=== PATIENT | female | born 1980 | race Caucasian/White ===

== ENCOUNTER 2016-12-15 10:54 | Inpatient (IN) | payer OTHER ==
[~2016-12-15] VITALS: Ht 165.1 cm; Wt 83.9 kg
[~2016-12-15 10:54] MED LIST: AMOXICILLIN/CLAVULAN PO; ATIVAN2 MG PO; BACLOFEN20 MG PO; BENADRY2 EX; BENADRYL ALLERG25 M1; CELEXA40 M1 PO; CYCLOBENZAPR10 MG PO; DILAUDID4 MG PO; DURAGESIC75 MCG/H1 TD; EFFEXOR25 M1 PO; FENTANYL50 MCG/HR TD; HYDROCODONE/ACE1 TAB PO; KEPPRA1000 MG PO; NITROFURANTN100 M2 PO; NITROFURANTN100 MG PO; ONDANSETRON4 MG PO; PERCOCET1 TA4 PO; RESTORIL15 M1 PO; RISPERDAL 4MG TA4 MG PO; SEROQUEL100 MG PO; SEROQUEL200 MG PO; TRAZODONE300 MG PO
[2016-12-15] MEDS ORDERED: ATIVAN1 M1 PO (12:00)
[2016-12-15 12:26] LABS: HEMATOCRIT 39.8 % (37.0-47.0); HEMOGLOBIN 12.2 g/dl (12.0-16.0); IMMATURE GRANULOCYTES 0.7 % (0.0-1.0); MEAN CELL VOLUME 69.7 fL CALC (80.0-100.0); MEAN CORPUSCULAR HGB 21.4 pG CALC (26.0-32.0); MEAN CORPUSCULAR HGB CONC 30.7 g/L CALC (32.0-36.0); NEUT# 11.71 thou/uL (2.00-7.15); RED BLOOD COUNT 5.71 mill/uL (4.20-5.60); RED CELL DISTRI WIDTH 19.6 % (11.5-15.5)
[2016-12-15 12:32] LABS: URINE BILIRUBIN - DIPSTICK NEGATIVE (NEGATIVE); URINE BLOOD DIPSTICK MODERATE (NEGATIVE); URINE CLARITY HAZY; URINE COLOR YELLOW; URINE GLUCOSE - DIPSTICK NEGATIVE (NEGATIVE); URINE KETONE NEGATIVE (NEGATIVE); URINE LEUK ESTERASE LARGE (NEGATIVE); URINE NITRITE - DIPSTICK POSITIVE (Negative); URINE PROTEIN - DIPSTICK NEGATIVE (NEG-TRACE); URINE SPECIFIC GRAVITY 1.015; URINE UROBILINOGEN - DIPSTICK 0.2 E.U./dL (0.2)
[2016-12-15 12:33] LABS: URINE RBC 25-50 RBC/hpf (0-5)
[2016-12-15 12:34] LABS: ALBUMIN 4.2 g/dL (3.2-5.0); ALKALINE PHOSPHATASE 109 u/l (38-126); ANION GAP 15 (6-22 (CALC)); BILIRUBIN, TOTAL 0.8 mg/dL (0.0-1.4); BUN 9 mg/dL (7-17); BUN/CREATININE RATIO 10 (12-20 (CALC)); CALCIUM 9.5 mg/dL (8.4-10.2); CARBON DIOXIDE 32 mmol/l (22-30); CHLORIDE 91 mmol/l (95-108); CREATININE 0.9 mg/dL (0.5-1.0); GFR > 60 ML/MIN (>=60 (CALC)); GFR FOR AFR.AMER. > 60 ML/MIN (>=60 (CALC)); GLUCOSE 98 mg/dL (65-105); POTASSIUM 3.1 mmol/l (3.5-5.1); SGOT/AST 32 u/l (14-36); SGPT/ALT 31 u/l (9-52); SODIUM 135 mmol/l (137-146); TOTAL PROTEIN 7.1 g/dL (6.3-8.2)
[2016-12-15 12:34] LABS: URINE BACTERIA MANY hpf; URINE EPITHELIAL CELLS MODERATE EPI/hpf (0-FEW); URINE WBC 20-50 WBC/hpf (0-5)
[2016-12-15 16:12] VITALS: BP 98/64
[2016-12-15 19:00] VITALS: BP 85/54
[2016-12-15 19:26] LABS: ANION GAP 12 (6-22 (CALC)); BUN 8 mg/dL (7-17); BUN/CREATININE RATIO 12 (12-20 (CALC)); CALCIUM 8.1 mg/dL (8.4-10.2); CARBON DIOXIDE 31 mmol/l (22-30); CHLORIDE 99 mmol/l (95-108); CREATININE 0.7 mg/dL (0.5-1.0); GFR > 60 ML/MIN (>=60 (CALC)); GFR FOR AFR.AMER. > 60 ML/MIN (>=60 (CALC)); GLUCOSE 89 mg/dL (65-105); MAGNESIUM 1.4 mg/dL (1.6-2.3); POTASSIUM 3.4 mmol/l (3.5-5.1); SODIUM 138 mmol/l (137-146)
[2016-12-16 04:54] VITALS: BP 100/62
[2016-12-16 05:51] LABS: HEMATOCRIT 34.3 % (37.0-47.0); HEMOGLOBIN 10.4 g/dl (12.0-16.0); IMMATURE GRANULOCYTES 0.4 % (0.0-1.0); MEAN CELL VOLUME 71.3 fL CALC (80.0-100.0); MEAN CORPUSCULAR HGB 21.6 pG CALC (26.0-32.0); MEAN CORPUSCULAR HGB CONC 30.3 g/L CALC (32.0-36.0); NEUT# 7.01 thou/uL (2.00-7.15); RED BLOOD COUNT 4.81 mill/uL (4.20-5.60); RED CELL DISTRI WIDTH 18.9 % (11.5-15.5)
[2016-12-16 05:52] LABS: ANION GAP 11 (6-22 (CALC)); BUN 4 mg/dL (7-17); BUN/CREATININE RATIO 11 (12-20 (CALC)); CALCIUM 8.5 mg/dL (8.4-10.2); CARBON DIOXIDE 32 mmol/l (22-30); CHLORIDE 101 mmol/l (95-108); CREATININE 0.4 mg/dL (0.5-1.0); GFR > 60 ML/MIN (>=60 (CALC)); GFR FOR AFR.AMER. > 60 ML/MIN (>=60 (CALC)); GLUCOSE 101 mg/dL (65-105); POTASSIUM 3.2 mmol/l (3.5-5.1); SODIUM 141 mmol/l (137-146)
[2016-12-16 08:05] VITALS: BP 92/59
[2016-12-16 16:23] VITALS: BP 94/61
[2016-12-16 19:15] VITALS: BP 92/59
[2016-12-16 23:00] VITALS: BP 90/60
[2016-12-17 04:00] VITALS: BP 95/60
[2016-12-17 08:01] VITALS: BP 118/83
[2016-12-17 08:20] LABS: HEMATOCRIT 32.7 % (37.0-47.0); HEMOGLOBIN 9.8 g/dl (12.0-16.0); IMMATURE GRANULOCYTES 0.5 % (0.0-1.0); MEAN CELL VOLUME 70.5 fL CALC (80.0-100.0); MEAN CORPUSCULAR HGB 21.1 pG CALC (26.0-32.0); NEUT# 5.17 thou/uL (2.00-7.15); RED BLOOD COUNT 4.64 mill/uL (4.20-5.60); RED CELL DISTRI WIDTH 19.2 % (11.5-15.5)
[2016-12-17 08:38] LABS: ANION GAP 9 (6-22 (CALC)); BUN 3 mg/dL (7-17); BUN/CREATININE RATIO 10 (12-20 (CALC)); CALCIUM 8.5 mg/dL (8.4-10.2); CARBON DIOXIDE 33 mmol/l (22-30); CHLORIDE 102 mmol/l (95-108); CREATININE 0.3 mg/dL (0.5-1.0); GFR > 60 ML/MIN (>=60 (CALC)); GFR FOR AFR.AMER. > 60 ML/MIN (>=60 (CALC)); GLUCOSE 95 mg/dL (65-105); POTASSIUM 3.3 mmol/l (3.5-5.1); SODIUM 141 mmol/l (137-146)
[2016-12-17 11:35] VITALS: BP 106/65
[2016-12-17 15:55] VITALS: BP 114/77
[2016-12-17 19:10] VITALS: BP 129/70; BP 99/61
[2016-12-18 04:40] VITALS: BP 130/90
[2016-12-18 05:44] LABS: HEMATOCRIT 31.2 % (37.0-47.0); HEMOGLOBIN 9.6 g/dl (12.0-16.0); IMMATURE GRANULOCYTES 0.3 % (0.0-1.0); MEAN CELL VOLUME 70.4 fL CALC (80.0-100.0); MEAN CORPUSCULAR HGB 21.7 pG CALC (26.0-32.0); MEAN CORPUSCULAR HGB CONC 30.8 g/L CALC (32.0-36.0); NEUT# 3.64 thou/uL (2.00-7.15); RED BLOOD COUNT 4.43 mill/uL (4.20-5.60); RED CELL DISTRI WIDTH 19.1 % (11.5-15.5)
[2016-12-18 06:24] LABS: ANION GAP 9 (6-22 (CALC)); BUN 5 mg/dL (7-17); BUN/CREATININE RATIO 16 (12-20 (CALC)); CALCIUM 8.4 mg/dL (8.4-10.2); CARBON DIOXIDE 30 mmol/l (22-30); CHLORIDE 105 mmol/l (95-108); CREATININE 0.3 mg/dL (0.5-1.0); GFR > 60 ML/MIN (>=60 (CALC)); GFR FOR AFR.AMER. > 60 ML/MIN (>=60 (CALC)); GLUCOSE 87 mg/dL (65-105); POTASSIUM 3.5 mmol/l (3.5-5.1); SODIUM 141 mmol/l (137-146)
[2016-12-18 07:50] VITALS: BP 124/79
[2016-12-18 15:28] VITALS: BP 139/104
[2016-12-18 17:01] VITALS: BP 135/91
[2016-12-18 19:55] VITALS: BP 139/67
[2016-12-19 04:10] VITALS: BP 130/71
[2016-12-19 08:15] VITALS: BP 151/101
[2016-12-19 12:30] VITALS: BP 142/70
[2016-12-19 16:16] LABS: C. DIFFICILE TOXIN A&B NEGATIVE (NEGATIVE)
[2016-12-19 16:30] VITALS: BP 137/91
[2016-12-19 19:18] VITALS: BP 108/72
[2016-12-20] VITALS (7 sets, daily range): BP systolic 131–163; BP diastolic 93–115
[2016-12-20 06:58] LABS: HEMATOCRIT 28.5 % (37.0-47.0); HEMOGLOBIN 8.8 g/dl (12.0-16.0); MEAN CELL VOLUME 70.2 fL CALC (80.0-100.0); MEAN CORPUSCULAR HGB 21.7 pG CALC (26.0-32.0); MEAN CORPUSCULAR HGB CONC 30.9 g/L CALC (32.0-36.0); RED BLOOD COUNT 4.06 mill/uL (4.20-5.60); RED CELL DISTRI WIDTH 18.9 % (11.5-15.5)
[2016-12-20 07:43] LABS: ANION GAP 9 (6-22 (CALC)); BUN 4 mg/dL (7-17); BUN/CREATININE RATIO 12 (12-20 (CALC)); CALCIUM 8.1 mg/dL (8.4-10.2); CARBON DIOXIDE 28 mmol/l (22-30); CHLORIDE 107 mmol/l (95-108); CREATININE 0.3 mg/dL (0.5-1.0); GFR > 60 ML/MIN (>=60 (CALC)); GFR FOR AFR.AMER. > 60 ML/MIN (>=60 (CALC)); GLUCOSE 85 mg/dL (65-105); MAGNESIUM 1.4 mg/dL (1.6-2.3); POTASSIUM 3.6 mmol/l (3.5-5.1); SODIUM 140 mmol/l (137-146)
[2016-12-21 03:10] VITALS: BP 120/66
[2016-12-21 07:29] VITALS: BP 142/100
[2016-12-21 15:31] VITALS: BP 126/88
[2016-12-21 20:00] VITALS: BP 138/95
[2016-12-22 04:00] VITALS: BP 138/91
[2016-12-22 07:05] LABS: HEMOGLOBIN 9.2 g/dl (12.0-16.0); IMMATURE GRANULOCYTES 1.6 % (0.0-1.0); MEAN CELL VOLUME 70.4 fL CALC (80.0-100.0); MEAN CORPUSCULAR HGB 21.6 pG CALC (26.0-32.0); MEAN CORPUSCULAR HGB CONC 30.7 g/L CALC (32.0-36.0); NEUT# 3.43 thou/uL (2.00-7.15); RED BLOOD COUNT 4.26 mill/uL (4.20-5.60); RED CELL DISTRI WIDTH 19.7 % (11.5-15.5)
[2016-12-22 07:19] LABS: ANION GAP 9 (6-22 (CALC)); BUN 4 mg/dL (7-17); BUN/CREATININE RATIO 13 (12-20 (CALC)); CALCIUM 8.3 mg/dL (8.4-10.2); CARBON DIOXIDE 33 mmol/l (22-30); CHLORIDE 104 mmol/l (95-108); CREATININE 0.3 mg/dL (0.5-1.0); GFR > 60 ML/MIN (>=60 (CALC)); GFR FOR AFR.AMER. > 60 ML/MIN (>=60 (CALC)); GLUCOSE 84 mg/dL (65-105); POTASSIUM 3.5 mmol/l (3.5-5.1); SODIUM 142 mmol/l (137-146)
[2016-12-22 10:05] VITALS: BP 125/85
[2016-12-22 15:34] VITALS: BP 119/79
[2016-12-22 19:40] VITALS: BP 137/65
[2016-12-23] VITALS (11 sets, daily range): BP systolic 91–126; BP diastolic 59–87
[2016-12-23 06:00] LABS: HEMATOCRIT 30.6 % (37.0-47.0); HEMOGLOBIN 9.3 g/dl (12.0-16.0); MEAN CELL VOLUME 70.5 fL CALC (80.0-100.0); MEAN CORPUSCULAR HGB 21.4 pG CALC (26.0-32.0); MEAN CORPUSCULAR HGB CONC 30.4 g/L CALC (32.0-36.0); NEUT# 4.84 thou/uL (2.00-7.15); RED BLOOD COUNT 4.34 mill/uL (4.20-5.60); RED CELL DISTRI WIDTH 19.9 % (11.5-15.5)
[2016-12-23 06:05] LABS: ANION GAP 10 (6-22 (CALC)); BUN 4 mg/dL (7-17); BUN/CREATININE RATIO 13 (12-20 (CALC)); CALCIUM 8.7 mg/dL (8.4-10.2); CARBON DIOXIDE 32 mmol/l (22-30); CHLORIDE 101 mmol/l (95-108); CREATININE 0.3 mg/dL (0.5-1.0); GFR > 60 ML/MIN (>=60 (CALC)); GFR FOR AFR.AMER. > 60 ML/MIN (>=60 (CALC)); GLUCOSE 82 mg/dL (65-105); MAGNESIUM 1.7 mg/dL (1.6-2.3); POTASSIUM 3.8 mmol/l (3.5-5.1); SODIUM 140 mmol/l (137-146)
[2016-12-24 04:45] VITALS: BP 110/76
[2016-12-24 06:06] LABS: HEMATOCRIT 30.6 % (37.0-47.0); HEMOGLOBIN 9.2 g/dl (12.0-16.0); IMMATURE GRANULOCYTES 1.2 % (0.0-1.0); MEAN CELL VOLUME 71.2 fL CALC (80.0-100.0); MEAN CORPUSCULAR HGB 21.4 pG CALC (26.0-32.0); MEAN CORPUSCULAR HGB CONC 30.1 g/L CALC (32.0-36.0); NEUT# 4.64 thou/uL (2.00-7.15); RED BLOOD COUNT 4.3 mill/uL (4.20-5.60); RED CELL DISTRI WIDTH 20.5 % (11.5-15.5)
[2016-12-24 07:25] LABS: ANION GAP 13 (6-22 (CALC)); BUN 7 mg/dL (7-17); BUN/CREATININE RATIO 18 (12-20 (CALC)); CALCIUM 8.5 mg/dL (8.4-10.2); CARBON DIOXIDE 31 mmol/l (22-30); CHLORIDE 102 mmol/l (95-108); CREATININE 0.4 mg/dL (0.5-1.0); GFR > 60 ML/MIN (>=60 (CALC)); GFR FOR AFR.AMER. > 60 ML/MIN (>=60 (CALC)); GLUCOSE 91 mg/dL (65-105); SODIUM 141 mmol/l (137-146)
[2016-12-24 07:37] VITALS: BP 93/70
[2016-12-24 14:53] VITALS: BP 106/64
[2016-12-24 21:22] VITALS: BP 113/79
[2016-12-25 05:43] VITALS: BP 119/84
[2016-12-25 16:33] VITALS: BP 127/77
[2016-12-25 19:00] VITALS: BP 106/54
[2016-12-26 05:39] VITALS: BP 95/62
[2016-12-26 08:55] VITALS: BP 91/63
[2016-12-26 16:45] VITALS: BP 110/72
[2016-12-26 19:40] VITALS: BP 97/61
[2016-12-27] VITALS (9 sets, daily range): BP systolic 91–111; BP diastolic 52–73
[2016-12-27 09:52] LABS: HEMOGLOBIN 10.7 g/dl (12.0-16.0); IMMATURE GRANULOCYTES 1.3 % (0.0-1.0); MEAN CORPUSCULAR HGB CONC 30.6 g/L CALC (32.0-36.0); NEUT# 7.62 thou/uL (2.00-7.15); RED BLOOD COUNT 4.86 mill/uL (4.20-5.60)
[2016-12-27 10:11] LABS: ANION GAP 14 (6-22 (CALC)); BUN 7 mg/dL (7-17); BUN/CREATININE RATIO 17 (12-20 (CALC)); CALCIUM 9.3 mg/dL (8.4-10.2); CARBON DIOXIDE 32 mmol/l (22-30); CHLORIDE 99 mmol/l (95-108); CREATININE 0.4 mg/dL (0.5-1.0); GFR > 60 ML/MIN (>=60 (CALC)); GFR FOR AFR.AMER. > 60 ML/MIN (>=60 (CALC)); GLUCOSE 85 mg/dL (65-105); POTASSIUM 4.4 mmol/l (3.5-5.1); SODIUM 140 mmol/l (137-146)
[2016-12-28 04:00] VITALS: BP 95/65
[2016-12-28 08:02] VITALS: BP 91/64
[2016-12-28 10:04] LABS: HEMATOCRIT 31.1 % (37.0-47.0); HEMOGLOBIN 9.4 g/dl (12.0-16.0); MEAN CORPUSCULAR HGB 22.1 pG CALC (26.0-32.0); MEAN CORPUSCULAR HGB CONC 30.2 g/L CALC (32.0-36.0); NEUT# 8.71 thou/uL (2.00-7.15); RED BLOOD COUNT 4.26 mill/uL (4.20-5.60); RED CELL DISTRI WIDTH 21.3 % (11.5-15.5)
[2016-12-28 15:30] VITALS: BP 100/68
[2016-12-28 19:00] VITALS: BP 90/62
[2016-12-28 23:00] VITALS: BP 98/68
[2016-12-29 05:08] VITALS: BP 103/69
[2016-12-29 09:18] VITALS: BP 102/74
[2016-12-29 16:16] VITALS: BP 113/79
[2016-12-29 20:05] VITALS: BP 106/78
[2016-12-29] MEDS ORDERED: FERROUS SULFAT325 MG PO (22:12)
[2016-12-29] MEDS ORDERED: AMLODIPINE BESYL5 MG PO (22:12)
[2016-12-29] MEDS ORDERED: ASPIRIN EC325 MG PO (22:12)
[2016-12-29] MEDS ORDERED: CEFEPIME2 GM IM (22:12)
[2016-12-29] MEDS ORDERED: FLORASTOR250 M1 PO (22:12)
[2016-12-29] MEDS ORDERED: HYDROCODONE/ACE1 TAB PO (22:12)
[2016-12-29 23:30] VITALS: BP 121/84
[2016-12-30 04:00] VITALS: BP 100/71
[2016-12-30 05:20] LABS: HEMATOCRIT 29.1 % (37.0-47.0); HEMOGLOBIN 8.7 g/dl (12.0-16.0); IMMATURE GRANULOCYTES 0.8 % (0.0-1.0); MEAN CELL VOLUME 73.1 fL CALC (80.0-100.0); MEAN CORPUSCULAR HGB 21.9 pG CALC (26.0-32.0); MEAN CORPUSCULAR HGB CONC 29.9 g/L CALC (32.0-36.0); NEUT# 7.99 thou/uL (2.00-7.15); RED BLOOD COUNT 3.98 mill/uL (4.20-5.60); RED CELL DISTRI WIDTH 21.4 % (11.5-15.5)
[2016-12-30 05:42] LABS: ANION GAP 15 (6-22 (CALC)); BUN 5 mg/dL (7-17); BUN/CREATININE RATIO 11 (12-20 (CALC)); CALCIUM 8.9 mg/dL (8.4-10.2); CARBON DIOXIDE 29 mmol/l (22-30); CHLORIDE 99 mmol/l (95-108); CREATININE 0.4 mg/dL (0.5-1.0); GFR > 60 ML/MIN (>=60 (CALC)); GFR FOR AFR.AMER. > 60 ML/MIN (>=60 (CALC)); GLUCOSE 102 mg/dL (65-105); MAGNESIUM 1.7 mg/dL (1.6-2.3); POTASSIUM 3.9 mmol/l (3.5-5.1); SODIUM 138 mmol/l (137-146)
[2016-12-30 08:31] VITALS: BP 108/77
[2016-12-30 15:00] VITALS: BP 80/63
[2016-12-30 17:48] LABS: URINE BILIRUBIN - DIPSTICK NEGATIVE (NEGATIVE); URINE BLOOD DIPSTICK NEGATIVE (NEGATIVE); URINE CLARITY CLEAR; URINE COLOR YELLOW; URINE GLUCOSE - DIPSTICK NEGATIVE (NEGATIVE); URINE KETONE NEGATIVE (NEGATIVE); URINE NITRITE - DIPSTICK NEGATIVE (Negative); URINE PROTEIN - DIPSTICK NEGATIVE (NEG-TRACE); URINE SPECIFIC GRAVITY <=1.005; URINE UROBILINOGEN - DIPSTICK 0.2 E.U./dL (0.2)
[2016-12-30 17:52] LABS: URINE LEUK ESTERASE TRACE (Negative)
[2016-12-30 19:25] VITALS: BP 124/78
[2016-12-31 04:15] VITALS: BP 144/81
[2016-12-31 06:28] LABS: HEMATOCRIT 26.7 % (37.0-47.0); HEMOGLOBIN 8.1 g/dl (12.0-16.0); MEAN CELL VOLUME 73.4 fL CALC (80.0-100.0); MEAN CORPUSCULAR HGB 22.3 pG CALC (26.0-32.0); MEAN CORPUSCULAR HGB CONC 30.3 g/L CALC (32.0-36.0); NEUT# 7.38 thou/uL (2.00-7.15); RED BLOOD COUNT 3.64 mill/uL (4.20-5.60); RED CELL DISTRI WIDTH 21.3 % (11.5-15.5)
[2016-12-31 06:32] LABS: ANION GAP 11 (6-22 (CALC)); BUN 4 mg/dL (7-17); BUN/CREATININE RATIO 10 (12-20 (CALC)); CALCIUM 8.5 mg/dL (8.4-10.2); CARBON DIOXIDE 29 mmol/l (22-30); CHLORIDE 103 mmol/l (95-108); CREATININE 0.4 mg/dL (0.5-1.0); GFR > 60 ML/MIN (>=60 (CALC)); GFR FOR AFR.AMER. > 60 ML/MIN (>=60 (CALC)); GLUCOSE 101 mg/dL (65-105); MAGNESIUM 1.7 mg/dL (1.6-2.3); POTASSIUM 3.5 mmol/l (3.5-5.1); SODIUM 140 mmol/l (137-146)
[2016-12-31 09:04] VITALS: BP 113/76
[2016-12-31] MEDS ORDERED: LORTAB 10-325 M1 TAB PO (15:07)
[2016-12-31 15:37] VITALS: BP 106/77
[2016-12-31 19:02] VITALS: BP 102/73
[2017-01-01 04:00] VITALS: BP 116/71
[2017-01-01 04:43] LABS: HEMATOCRIT 25.7 % (37.0-47.0); HEMOGLOBIN 7.8 g/dl (12.0-16.0); IMMATURE GRANULOCYTES 1.1 % (0.0-1.0); MEAN CELL VOLUME 73.6 fL CALC (80.0-100.0); MEAN CORPUSCULAR HGB 22.3 pG CALC (26.0-32.0); MEAN CORPUSCULAR HGB CONC 30.4 g/L CALC (32.0-36.0); NEUT# 5.38 thou/uL (2.00-7.15); RED BLOOD COUNT 3.49 mill/uL (4.20-5.60); RED CELL DISTRI WIDTH 21.4 % (11.5-15.5)
[2017-01-01 04:59] LABS: ANION GAP 15 (6-22 (CALC)); BUN 3 mg/dL (7-17); BUN/CREATININE RATIO 8 (12-20 (CALC)); CALCIUM 8.4 mg/dL (8.4-10.2); CARBON DIOXIDE 29 mmol/l (22-30); CHLORIDE 104 mmol/l (95-108); CREATININE 0.4 mg/dL (0.5-1.0); GFR > 60 ML/MIN (>=60 (CALC)); GFR FOR AFR.AMER. > 60 ML/MIN (>=60 (CALC)); GLUCOSE 90 mg/dL (65-105); POTASSIUM 3.6 mmol/l (3.5-5.1); SODIUM 144 mmol/l (137-146)
[2017-01-01 09:32] VITALS: BP 118/76
[2017-01-01 19:50] VITALS: BP 112/71
[2017-01-02 03:57] VITALS: BP 142/58
[2017-01-02 06:06] LABS: HEMATOCRIT 27.6 % (37.0-47.0); HEMOGLOBIN 8.1 g/dl (12.0-16.0); IMMATURE GRANULOCYTES 1.7 % (0.0-1.0); MEAN CELL VOLUME 75.2 fL CALC (80.0-100.0); MEAN CORPUSCULAR HGB 22.1 pG CALC (26.0-32.0); MEAN CORPUSCULAR HGB CONC 29.3 g/L CALC (32.0-36.0); NEUT# 6.72 thou/uL (2.00-7.15); RED BLOOD COUNT 3.67 mill/uL (4.20-5.60); RED CELL DISTRI WIDTH 21.6 % (11.5-15.5)
[2017-01-02 06:09] LABS: ANION GAP 15 (6-22 (CALC)); BUN 5 mg/dL (7-17); BUN/CREATININE RATIO 14 (12-20 (CALC)); CALCIUM 8.7 mg/dL (8.4-10.2); CARBON DIOXIDE 25 mmol/l (22-30); CHLORIDE 107 mmol/l (95-108); CREATININE 0.3 mg/dL (0.5-1.0); GFR > 60 ML/MIN (>=60 (CALC)); GFR FOR AFR.AMER. > 60 ML/MIN (>=60 (CALC)); GLUCOSE 128 mg/dL (65-105); SODIUM 143 mmol/l (137-146)
[2017-01-02 07:54] VITALS: BP 131/86
[2017-01-02 15:36] VITALS: BP 145/88
[2017-01-02 19:15] VITALS: BP 119/76
[2017-01-03 04:35] VITALS: BP 130/86
[2017-01-03 06:04] LABS: HEMATOCRIT 27.5 % (37.0-47.0); HEMOGLOBIN 8.1 g/dl (12.0-16.0); MEAN CELL VOLUME 75.3 fL CALC (80.0-100.0); MEAN CORPUSCULAR HGB 22.2 pG CALC (26.0-32.0); MEAN CORPUSCULAR HGB CONC 29.5 g/L CALC (32.0-36.0); NEUT# 9.02 thou/uL (2.00-7.15); RED BLOOD COUNT 3.65 mill/uL (4.20-5.60); RED CELL DISTRI WIDTH 21.9 % (11.5-15.5)
[2017-01-03 06:05] LABS: ALBUMIN 3.2 g/dL (3.2-5.0); ALKALINE PHOSPHATASE 83 u/l (38-126); ANION GAP 14 (6-22 (CALC)); BILIRUBIN, TOTAL 0.6 mg/dL (0.0-1.4); BUN 5 mg/dL (7-17); BUN/CREATININE RATIO 14 (12-20 (CALC)); CALCIUM 8.9 mg/dL (8.4-10.2); CARBON DIOXIDE 29 mmol/l (22-30); CHLORIDE 104 mmol/l (95-108); CREATININE 0.3 mg/dL (0.5-1.0); GFR > 60 ML/MIN (>=60 (CALC)); GFR FOR AFR.AMER. > 60 ML/MIN (>=60 (CALC)); GLUCOSE 94 mg/dL (65-105); POTASSIUM 4.1 mmol/l (3.5-5.1); SGOT/AST 21 u/l (14-36); SGPT/ALT 25 u/l (9-52); SODIUM 143 mmol/l (137-146); TOTAL PROTEIN 5.9 g/dL (6.3-8.2)
[2017-01-03 07:52] VITALS: BP 119/78
[2017-01-03 16:18] VITALS: BP 111/82
[2017-01-03 19:30] VITALS: BP 125/82
[2017-01-04 04:15] LABS: HEMATOCRIT 27.6 % (37.0-47.0); HEMOGLOBIN 8.2 g/dl (12.0-16.0); IMMATURE GRANULOCYTES 1.2 % (0.0-1.0); MEAN CELL VOLUME 75.2 fL CALC (80.0-100.0); MEAN CORPUSCULAR HGB 22.3 pG CALC (26.0-32.0); MEAN CORPUSCULAR HGB CONC 29.7 g/L CALC (32.0-36.0); NEUT# 10.52 thou/uL (2.00-7.15); RED BLOOD COUNT 3.67 mill/uL (4.20-5.60); RED CELL DISTRI WIDTH 22.4 % (11.5-15.5)
[2017-01-04 04:28] LABS: ALBUMIN 3.2 g/dL (3.2-5.0); ALKALINE PHOSPHATASE 81 u/l (38-126); ANION GAP 13 (6-22 (CALC)); BILIRUBIN, TOTAL 0.6 mg/dL (0.0-1.4); BUN 5 mg/dL (7-17); BUN/CREATININE RATIO 16 (12-20 (CALC)); CALCIUM 8.8 mg/dL (8.4-10.2); CARBON DIOXIDE 31 mmol/l (22-30); CHLORIDE 103 mmol/l (95-108); CREATININE 0.3 mg/dL (0.5-1.0); GFR > 60 ML/MIN (>=60 (CALC)); GFR FOR AFR.AMER. > 60 ML/MIN (>=60 (CALC)); GLUCOSE 92 mg/dL (65-105); POTASSIUM 3.8 mmol/l (3.5-5.1); SGOT/AST 19 u/l (14-36); SGPT/ALT 29 u/l (9-52); SODIUM 143 mmol/l (137-146); TOTAL PROTEIN 5.9 g/dL (6.3-8.2)
[2017-01-04 04:47] VITALS: BP 120/82
[2017-01-04 07:52] VITALS: BP 132/79
[2017-01-04 16:54] VITALS: BP 103/65
[2017-01-04 18:35] VITALS: BP 124/66
[2017-01-05 03:15] VITALS: BP 130/70
[2017-01-05 06:12] LABS: HEMATOCRIT 27.9 % (37.0-47.0); HEMOGLOBIN 8.3 g/dl (12.0-16.0); IMMATURE GRANULOCYTES 1.2 % (0.0-1.0); MEAN CELL VOLUME 75.4 fL CALC (80.0-100.0); MEAN CORPUSCULAR HGB 22.4 pG CALC (26.0-32.0); MEAN CORPUSCULAR HGB CONC 29.7 g/L CALC (32.0-36.0); NEUT# 12.78 thou/uL (2.00-7.15); RED BLOOD COUNT 3.7 mill/uL (4.20-5.60); RED CELL DISTRI WIDTH 22.5 % (11.5-15.5)
[2017-01-05 16:00] VITALS: BP 107/70
[2017-01-05 19:00] VITALS: BP 124/70
[2017-01-06 03:52] VITALS: BP 128/85
[2017-01-06 07:58] VITALS: BP 117/81
[2017-01-06 09:23] VITALS: BP 117/81
[2017-01-06 11:02] LABS: HEMATOCRIT 27.7 % (37.0-47.0); HEMOGLOBIN 8.1 g/dl (12.0-16.0); MEAN CELL VOLUME 75.5 fL CALC (80.0-100.0); MEAN CORPUSCULAR HGB 22.1 pG CALC (26.0-32.0); MEAN CORPUSCULAR HGB CONC 29.2 g/L CALC (32.0-36.0); NEUT# 7.85 thou/uL (2.00-7.15); RED BLOOD COUNT 3.67 mill/uL (4.20-5.60); RED CELL DISTRI WIDTH 22.3 % (11.5-15.5)
== END 2017-01-06 17:35 | disposition home or self-care (01) | DRG 854 ==
LOC: EDPENDDISDT → EDPENDDISTM → ED 10:54 → ED-I 15:02 → ED 15:23 → MS2 15:24
PROVIDERS: Emergency Medicine; Internal Medicine; Nurse Practitioner Family; ADMIT Internal Medicine; ATTEND Internal Medicine
PROC: 02HV33Z Insertion of Infusion Device into Superior Vena Cava, Percutaneous Approach (ICD-10-PCS; principal; 2016-12-15)
PROC: 02HV33Z Insertion of Infusion Device into Superior Vena Cava, Percutaneous Approach (ICD-10-PCS; 2016-12-17)
PROC: B518ZZA Fluoroscopy of Superior Vena Cava, Guidance (ICD-10-PCS; 2016-12-17)
PROC: 0QBP0ZZ Excision of Left Metatarsal, Open Approach (ICD-10-PCS; 2016-12-23)
PROC: 0T2BX0Z Change Drainage Device in Bladder, External Approach (ICD-10-PCS; 2016-12-26)
PROC: 0JQR0ZZ Repair Left Foot Subcutaneous Tissue and Fascia, Open Approach (ICD-10-PCS; 2016-12-27)
PROC: 0HBRXZZ Excision of Toe Nail, External Approach (ICD-10-PCS; 2016-12-27)
PROC: 0HBRXZZ Excision of Toe Nail, External Approach (ICD-10-PCS; 2016-12-27)
PROC: 0HBRXZZ Excision of Toe Nail, External Approach (ICD-10-PCS; 2016-12-27)
PROC: 0HBRXZZ Excision of Toe Nail, External Approach (ICD-10-PCS; 2016-12-27)
PROC: 0HBRXZZ Excision of Toe Nail, External Approach (ICD-10-PCS; 2016-12-27)
DX: A41.9 Sepsis, unspecified organism (principal); M86.172 Other acute osteomyelitis, left ankle and foot; L89.152 Pressure ulcer of sacral region, stage 2; G82.20 Paraplegia, unspecified; E87.1 Hypo-osmolality and hyponatremia; L03.116 Cellulitis of left lower limb; T83.511A Infection and inflammatory reaction due to indwelling urethral catheter, initial encounter; B37.49 Other urogenital candidiasis; N39.0 Urinary tract infection, site not specified; N31.9 Neuromuscular dysfunction of bladder, unspecified; E87.6 Hypokalemia; F32.9 Major depressive disorder, single episode, unspecified; F17.210 Nicotine dependence, cigarettes, uncomplicated; M62.838 Other muscle spasm; G89.4 Chronic pain syndrome; T14.8 Other injury of unspecified body region; R15.9 Full incontinence of feces; B96.5 Pseudomonas (aeruginosa) (mallei) (pseudomallei) as the cause of diseases classified elsewhere; D63.8 Anemia in other chronic diseases classified elsewhere; D50.0 Iron deficiency anemia secondary to blood loss (chronic); L89.892 Pressure ulcer of other site, stage 2; L89.629 Pressure ulcer of left heel, unspecified stage; L89.619 Pressure ulcer of right heel, unspecified stage; Y84.6 Urinary catheterization as the cause of abnormal reaction of the patient, or of later complication, without mention of misadventure at the time of the procedure; X58.XXXD Exposure to other specified factors, subsequent encounter; Z99.3 Dependence on wheelchair; T21.21XA Burn of second degree of chest wall, initial encounter; X19.XXXA Contact with other heat and hot substances, initial encounter; Y93.89 Activity, other specified; Y92.230 Patient room in hospital as the place of occurrence of the external cause; Z87.440 Personal history of urinary (tract) infections
CPT/HCPCS: A9579; J0692; J1756; J2997; J3370

== ENCOUNTER → 2018-06-14 | Outpatient (REF) | payer OTHER ==
[~2018-06-14] MED LIST changes: +AMBIEN10 MG PO; +AMLODIPINE BESYL5 MG PO; +ASPIRIN EC325 MG PO; +ATIVAN1 M1 PO; +CEFEPIME2 GM IM; +CIPRO XR500 M2 PO; +COMBIVENT RESPIMAT IN; +COMPAZINE5 MG/TAB PO; +DIFLUCAN100 M1; +DITROPAN PO; +FENTANYL25 MCG/HR TD; +FERROUS SULFAT325 MG PO; +FLORASTOR250 M1 PO; +KLONOPIN2 MG PO; +LEVAQUIN500 MG PO; +LEVAQUIN750 M1; +LIPITOR20 M1 PO; +LORTAB 10-325 M1 TAB PO; +MEDDOSEPAK PO; +PAXIL30 MG PO; +TRAZODONE100 MG PO; +VENTOLIN HFA IN
[2018-06-14 10:03] VITALS: BP 103/65
== END | disposition home or self-care (01) | DRG 951 ==
LOC: PAIN/MGT 09:55
PROVIDERS: ATTEND Anesthesiology Pain Medicine
DX: Z09 Encounter for follow-up examination after completed treatment for conditions other than malignant neoplasm (principal)

== ENCOUNTER 2018-08-26 12:42 | Emergency (ER) | payer OTHER ==
[~2018-08-26] VITALS: Ht 165.1 cm; Wt 90.0 kg
[2018-08-26 14:20] LABS: URINE BILIRUBIN - DIPSTICK NEGATIVE (NEGATIVE); URINE BLOOD DIPSTICK NEGATIVE (NEGATIVE); URINE COLOR YELLOW; URINE GLUCOSE - DIPSTICK NEGATIVE (NEGATIVE); URINE KETONE NEGATIVE (NEGATIVE); URINE LEUK ESTERASE MODERATE (NEGATIVE); URINE NITRITE - DIPSTICK POSITIVE (Negative); URINE PH 6.5 (4.5-8.0); URINE PROTEIN - DIPSTICK NEGATIVE (NEG-TRACE); URINE SPECIFIC GRAVITY <=1.005; URINE UROBILINOGEN - DIPSTICK 0.2 E.U./dL (0.2)
[2018-08-26 14:29] LABS: URINE BACTERIA MANY hpf; URINE SQUAMOUS EPITHELIAL CELL FEW EPI/hpf (0-FEW)
[2018-08-26] MEDS ORDERED: KEFLEX500 M1 PO (14:36)
[2018-08-26 14:41] VITALS: BP 101/69
== END 2018-08-26 14:47 | disposition home or self-care (01) ==
LOC: ED 12:42
PROVIDERS: Family Medicine
DX: N39.0 Urinary tract infection, site not specified (principal); B96.20 Unspecified Escherichia coli [E. coli] as the cause of diseases classified elsewhere; G82.20 Paraplegia, unspecified; F17.210 Nicotine dependence, cigarettes, uncomplicated; Z93.59 Other cystostomy status; Z79.2 Long term (current) use of antibiotics; Z99.3 Dependence on wheelchair; Z87.440 Personal history of urinary (tract) infections

== ENCOUNTER 2019-02-21 14:57 | Emergency (ER) | payer OTHER ==
[~2019-02-21] VITALS: Ht 165.1 cm; Wt 79.0 kg
[~2019-02-21 14:57] MED LIST changes: +KEFLEX500 M1 PO; +LYRICA100 MG PO; +NEURONTIN300 MG PO
[2019-02-21 16:39] LABS: MEAN CORPUSCULAR HGB 29.2 pG CALC (26.0-32.0); MEAN CORPUSCULAR HGB CONC 31.2 g/L CALC (32.0-36.0); NEUT# 10.9 thou/uL (2.00-7.15); RED BLOOD COUNT 5.07 mill/uL (4.20-5.60); RED CELL DISTRI WIDTH 14.9 % (11.5-15.5)
[2019-02-21 16:40] LABS: HEMATOCRIT 47.4 % (37.0-47.0); HEMOGLOBIN 14.8 g/dl (12.0-16.0); MEAN CELL VOLUME 93.5 fL CALC (80.0-100.0)
[2019-02-21 16:44] LABS: URINE BILIRUBIN - DIPSTICK NEGATIVE (NEGATIVE); URINE BLOOD DIPSTICK NEGATIVE (NEGATIVE); URINE COLOR YELLOW; URINE GLUCOSE - DIPSTICK NEGATIVE (NEGATIVE); URINE KETONE NEGATIVE (NEGATIVE); URINE PH 5.5 (4.5-8.0); URINE PROTEIN - DIPSTICK NEGATIVE (NEG-TRACE); URINE UROBILINOGEN - DIPSTICK 0.2 E.U./dL (0.2)
[2019-02-21 16:49] LABS: BARBITURATES NEGATIVE (NEGATIVE); COCAINE NEGATIVE (NEGATIVE); METHADONE NEGATIVE (NEGATIVE); TETRAHYDROCANNABIONOL NEGATIVE (NEGATIVE); TRICYLIC ANTIDEPRESSANTS NEGATIVE (NEGATIVE)
[2019-02-21 16:50] LABS: OXCYCODONE POSITIVE (NEGATIVE)
[2019-02-21 16:52] LABS: URINE LEUK ESTERASE MODERATE (NEGATIVE); URINE NITRITE - DIPSTICK POSITIVE (Negative)
[2019-02-21 16:53] LABS: URINE BACTERIA FEW hpf; URINE SQUAMOUS EPITHELIAL CELL FEW EPI/hpf (0-FEW)
[2019-02-21 17:08] LABS: ALKALINE PHOSPHATASE 79 u/l (38-126); ANION GAP 14 (6-22 (CALC)); BILIRUBIN, TOTAL 0.6 mg/dL (0.0-1.4); BUN 6 mg/dL (7-17); BUN/CREATININE RATIO 14 (12-20 (CALC)); CARBON DIOXIDE 27 mmol/l (22-30); CHLORIDE 104 mmol/l (95-108); CREATININE 0.4 mg/dL (0.5-1.0); ETHYL ALCOHOL 0 mg/dl (0-30); GFR > 60 ML/MIN (>=60 (CALC)); GFR FOR AFR.AMER. > 60 ML/MIN (>=60 (CALC)); POTASSIUM 4.5 mmol/l (3.5-5.1); SGOT/AST 21 u/l (14-36); SODIUM 140 mmol/l (137-146)
[2019-02-21 17:42] VITALS: BP 115/58
[2019-02-28] MEDS ORDERED: NORCO1 TA2 PO (10:29)
[2019-02-28] MEDS ORDERED: NEURONTIN600 MG PO (10:31)
[2019-03-21] MEDS ORDERED: PAXIL30 MG PO (11:26)
[2019-03-21] MEDS ORDERED: BACLOFEN20 MG PO (11:28)
[2019-03-21] MEDS ORDERED: TRAZODONE100 MG PO (11:29)
[2019-03-21] MEDS ORDERED: GABAPENTIN400 M2 PO (11:30)
[2019-03-21] MEDS ORDERED: DITROPAN5 MG/TA1 PO (11:31)
[2019-03-21] MEDS ORDERED: IRON (FERROUS S50 MG PO (11:37)
[2019-03-21] MEDS ORDERED: NORCO1 TA2 PO ×2 (11:52→11:53)
[2019-04-18] MEDS ORDERED: NORCO1 TA2 PO (11:38)
[2019-05-16] MEDS ORDERED: NORCO1 TA2 PO (10:52)
== END 2019-02-21 17:42 | disposition home or self-care (01) ==
LOC: ED 14:57
PROVIDERS: Family Medicine
DX: F12.10 Cannabis abuse, uncomplicated (principal); R82.5 Elevated urine levels of drugs, medicaments and biological substances; G82.20 Paraplegia, unspecified; F17.200 Nicotine dependence, unspecified, uncomplicated; Z79.891 Long term (current) use of opiate analgesic

== ENCOUNTER 2019-12-22 14:37 | Emergency (ER) | payer OTHER ==
[~2019-12-22] VITALS: Ht 165.1 cm; Wt 75.0 kg
[~2019-12-22 14:37] MED LIST changes: +ALBUTEROL SUL0.083 % IN; +CLONAZEPAM1 MG PO; +DITROPAN5 MG/TA1 PO; +GABAPENTIN400 M2 PO; +GABAPENTIN800 MG PO; +IRON (FERROUS S50 MG PO; +MACROBID100 MG PO; +NEURONTIN600 MG PO; +NORCO1 TA2 PO; +OXYBUTYNIN CHLO10 MG PO; +PAROXETINE20 MG PO; +QUETIAPINE FUM200 MG PO; +ROPINIROLE1 MG PO; +ROPINIROLE2 MG PO; +SEROQUEL XR200 MG PO; +TRAZODONE HYDR150 MG PO
[2019-12-22 15:05] LABS: URINE BILIRUBIN - DIPSTICK NEGATIVE (NEGATIVE); URINE BLOOD DIPSTICK NEGATIVE (NEGATIVE); URINE COLOR YELLOW; URINE GLUCOSE - DIPSTICK NEGATIVE (NEGATIVE); URINE KETONE NEGATIVE (NEGATIVE); URINE PH 6.5 (4.5-8.0); URINE PROTEIN - DIPSTICK NEGATIVE (NEG-TRACE)
[2019-12-22 15:08] LABS: URINE LEUK ESTERASE SMALL (NEGATIVE); URINE NITRITE - DIPSTICK POSITIVE (Negative)
[2019-12-22 15:10] LABS: URINE BACTERIA MANY hpf; URINE EPITHELIAL CELLS MODERATE EPI/hpf (0-FEW)
[2019-12-22] MEDS ORDERED: PAROXETINE HCL40 MG PO (15:16)
[2019-12-22] MEDS ORDERED: PROAIR HFA108 MCG/AC PO (15:17)
[2019-12-22] MEDS ORDERED: ROPINIROLE2 MG PO (15:18)
[2019-12-22] MEDS ORDERED: TRAZODONE100 MG PO (15:19)
[2019-12-22] MEDS ORDERED: LEVAQUIN750 MG PO (15:30)
[2019-12-22 15:40] VITALS: BP 119/58
[2020-01-04] MEDS ORDERED: TRILEPTAL150 M1 PO (10:10)
[2020-01-04] MEDS ORDERED: HYDROCODONE/ACE1 TAB PO (10:37)
== END 2019-12-22 15:40 | disposition home or self-care (01) ==
LOC: ED 14:37
PROVIDERS: Student in an Organized Health Care Education/Training Program
DX: N39.0 Urinary tract infection, site not specified (principal); B96.20 Unspecified Escherichia coli [E. coli] as the cause of diseases classified elsewhere; G82.20 Paraplegia, unspecified; F17.200 Nicotine dependence, unspecified, uncomplicated; Z93.50 Unspecified cystostomy status; Z87.440 Personal history of urinary (tract) infections

== ENCOUNTER 2020-05-07 12:47 | Emergency (ER) | payer OTHER ==
[~2020-05-07] VITALS: Ht 165.1 cm; Wt 75.0 kg
[~2020-05-07 12:47] MED LIST changes: +LEVAQUIN750 MG PO; +NARCAN4 MG/0.1 M; +PAROXETINE HCL40 MG PO; +PERCOCET1 TA2 PO; +PROAIR HFA108 MCG/AC PO; +TRILEPTAL150 M1 PO
[2020-05-07 14:00] VITALS: BP 130/72
== END 2020-05-07 13:30 | disposition left against medical advice (07) ==
LOC: ED 12:47
DX: G89.21 Chronic pain due to trauma (principal); G82.20 Paraplegia, unspecified; F17.200 Nicotine dependence, unspecified, uncomplicated; Z91.19 Patient's noncompliance with other medical treatment and regimen

== ENCOUNTER 2020-12-18 14:24 | Observation (INO) | payer OTHER ==
[~2020-12-18] VITALS: Ht 165.1 cm; Wt 65.0 kg
[~2020-12-18 14:24] MED LIST changes: +ALBUTEROL SUL0.083 % NEB; -PAROXETINE HCL40 MG PO; +PAROXETINE10 M1 PO; -PROAIR HFA108 MCG/AC PO
--- NOTE | 2020-12-18 15:50 | NUR ---
PT TO ROOM VIA PERSONAL ELECTRIC WHEELCHAIR.
[2020-12-18 18:06] LABS: URINE BILIRUBIN - DIPSTICK NEGATIVE (NEGATIVE); URINE BLOOD DIPSTICK NEGATIVE (NEGATIVE); URINE COLOR YELLOW; URINE GLUCOSE - DIPSTICK NEGATIVE (NEGATIVE); URINE KETONE NEGATIVE (NEGATIVE); URINE PROTEIN - DIPSTICK NEGATIVE (NEG-TRACE); URINE SPECIFIC GRAVITY 1.025; URINE UROBILINOGEN - DIPSTICK 0.2 E.U./dL (0.2)
[2020-12-18 18:07] LABS: URINE LEUK ESTERASE MODERATE (NEGATIVE); URINE NITRITE - DIPSTICK POSITIVE (Negative)
[2020-12-18 18:12] LABS: HEMATOCRIT 44.2 % (37.0-47.0); HEMOGLOBIN 14.2 g/dl (12.0-16.0); IMMATURE GRANULOCYTES 0.2 % (0.0-5.0); MEAN CELL VOLUME 92.1 fL CALC (80.0-100.0); MEAN CORPUSCULAR HGB 29.6 pG CALC (26.0-32.0); MEAN CORPUSCULAR HGB CONC 32.1 g/dL CAL (32.0-36.0); NEUT# 7.27 thou/uL (2.00-7.15); RED BLOOD COUNT 4.8 mill/uL (4.20-5.60); RED CELL DISTRI WIDTH 13.5 % (11.5-15.5)
[2020-12-18 18:13] LABS: URINE BACTERIA RARE hpf; URINE SQUAMOUS EPITHELIAL CELL MODERATE EPI/hpf (0-FEW); URINE WBC 20-50 WBC/hpf (0-5)
[2020-12-18 18:32] LABS: ALBUMIN 4.1 g/dL (3.2-5.0); ALKALINE PHOSPHATASE 84 u/l (38-126); ANION GAP 11 (6-22 (CALC)); BILIRUBIN, TOTAL 0.5 mg/dL (0.0-1.4); BUN 9 mg/dL (7-17); BUN/CREATININE RATIO 19 (12-20 (CALC)); CARBON DIOXIDE 27 mmol/l (22-30); CHLORIDE 101 mmol/l (95-108); CREATININE 0.5 mg/dL (0.5-1.0); GFR > 60 ML/MIN (>=60 (CALC)); GFR FOR AFR.AMER. > 60 ML/MIN (>=60 (CALC)); SGOT/AST 29 u/l (14-36); SODIUM 135 mmol/l (137-146); TOTAL PROTEIN 7.4 g/dL (6.3-8.2)
--- NOTE | 2020-12-18 21:00 | NUR ---
Transfer Information Transferred To: [facility] Report Given to: AURA Transported by: [facility] N Air N Other Transported with: Y Nurse N Transporter Y Patent IV N O2 N Fish Smoker
[2020-12-18 21:12] VITALS: BP 89/57
--- NOTE | 2020-12-18 21:30 | NUR ---
AT 2111, RECEIVED PATIENT TO THE FLOOR/ROOM 278 VIA PERSONAL ELECTRIC WHEELCHAIR AND KHANG RN IN STABLE CONDITION. PATIENT IS ALERT AND ORIENTED X3. ABLE TO MAKE NEEDS KNOWN. PATIENT IS A PARAPALEGIC. RESPIRATIONS UNLABORED. HR REGULAR. OPEN AREA TO RIGHT BUTTOCK COVERED WITH DRESSING, PICTURE TAKEN. B/L HEELS REDDENED AND BOGGY IN APPEARANCE. CATHETER WITH LEG BAG IN PLACE, CHANGED NOW WITH FONG DRAINAGE BAG FOR HS. PM MEDICATIONS GIVEN. C/O PAIN TO B/L LEGS, FEET, AND BACK. DILAUDED GIVEN IN THE ED. PATIENT REPORTS PAIN 8/10 AND IMPROVED FROM THE ED. PATIENT WAS ORIENTED TO ROOM AND CALL LIGHT SYSTEM. BED IN LOW POSITION. CALL LIGHT WITHIN REACH. ALSO PATIENT HAS MULTIPLE SCARING ALL OVER BODY. WHEN ASKED, THE PATIENT REPLIED, "LIFE HAPPENS." PATIENT WOULD NOT GIVE EXPLANATION. PHOTO TAKEN OF BUTTOCK.
[2020-12-19] VITALS (7 sets, daily range): BP systolic 83–113; BP diastolic 49–74
--- NOTE | 2020-12-19 | NUR ---
NO COMPLAINTS. IVF INFUSING ORDERED. FONG CATHETER DRAINING TO GRAVITY. RESPIRATIONS UNLABORED. BED IN LOW POSITION. CALL LIGHT WITHIN REACH.
--- NOTE | 2020-12-19 04:07 | NUR ---
NO CHANGES OBSERVED. IVF INFUSING. BED IN LOW POSITION. CALL LIGHT WITHIN REACH.
--- NOTE | 2020-12-19 04:54 | NUR ---
DR. SHEIKH CALLED FOR LOW B/P. NEW ORDERS RECEIVED. 1 LITER BOLUS INITIATED.
--- NOTE | 2020-12-19 05:56 | NUR ---
B/P 82/50 WITH 700 CC NS BOLUS IN. NO IMPROVEMENT YET. WILL RECHECK AFTER FULL BOLUS INFUSED. PATIENT FEELING TIRED. RESTING QUIELTY.
[2020-12-19 05:57] LABS: HEMATOCRIT 42.5 % (37.0-47.0); HEMOGLOBIN 13.4 g/dl (12.0-16.0); MEAN CELL VOLUME 93.4 fL CALC (80.0-100.0); MEAN CORPUSCULAR HGB 29.5 pG CALC (26.0-32.0); MEAN CORPUSCULAR HGB CONC 31.5 g/dL CAL (32.0-36.0); RED BLOOD COUNT 4.55 mill/uL (4.20-5.60); RED CELL DISTRI WIDTH 13.4 % (11.5-15.5)
[2020-12-19 06:11] LABS: ANION GAP 9 (6-22 (CALC)); BUN 7 mg/dL (7-17); BUN/CREATININE RATIO 19 (12-20 (CALC)); CARBON DIOXIDE 26 mmol/l (22-30); CHLORIDE 107 mmol/l (95-108); CREATININE 0.4 mg/dL (0.5-1.0); GFR > 60 ML/MIN (>=60 (CALC)); GFR FOR AFR.AMER. > 60 ML/MIN (>=60 (CALC)); MAGNESIUM 1.8 mg/dL (1.6-2.3); POTASSIUM 3.9 mmol/l (3.5-5.1); SODIUM 138 mmol/l (137-146)
--- NOTE | 2020-12-19 07:10 | NUR ---
BEDSIDE REPORT RECEIVED, PER MANAGER DATABASE NURSE PT DIDNT GET MUCH SLEEP LAST NIGHT. PT LYING IN BED ASLEEP AT THIS TIME. WILL CONTINUE TO MONITOR.
[2020-12-19] MEDS ORDERED: HIPREX1 GM PO (10:29)
[2020-12-19] MEDS ORDERED: ADVAIR DISK1 IN (10:30)
--- NOTE | 2020-12-19 12:10 | NUR ---
PT BP 80'S/60'S D CARTEE STATED TO GIVE 500ML BOLUS OVER 1 HOUR. WILL RECHECK BP AFTER BOLUS. PT STATED THIS IS HER NORMAL.
--- NOTE | 2020-12-19 14:53 | NUR ---
NO OPIATES PER DR BOYD
--- NOTE | 2020-12-19 15:18 | NUR ---
PT STATES THAT ALL THE MEDICAITONS FOR PAIN ARE NOT WORKING AND REQUESTED INCREASE IN DOSE AND MULTIPLE OTHER MEDICATIONS THAT ARE NOT ORDERED. PER Kristyn KANG IF PT COTINUES TO "SEEK" MEDICATIONS, SHE WILL NEED BE D/C'D.
--- NOTE | 2020-12-19 18:42 | NUR ---
PT B/P 90S/60S WHILE LAYING DOWN AND SLEEPING. AROUSED PT AND SAT HER UP GOES UP TO 101/66. PT IS ASYMPTOMATIC. WILL CONTINUE TO MONITOR.
--- NOTE | 2020-12-19 18:50 | NUR ---
REPORT RECEIVED FROM Anneliese BLAIR RN
[2020-12-20 04:00] VITALS: BP 87/55
--- NOTE | 2020-12-20 04:16 | NUR ---
PATIENT AWAKE RESTING COMFORTABLY. WATCHING TV, DENIES ANY FURTHER NEEDS AT THIS TIME. CALL LIGHT AND BEDSIDE TABLE WITHIN REACH.
[2020-12-20 05:48] LABS: HEMATOCRIT 37.2 % (37.0-47.0); HEMOGLOBIN 11.8 g/dl (12.0-16.0); MEAN CELL VOLUME 94.7 fL CALC (80.0-100.0); MEAN CORPUSCULAR HGB CONC 31.7 g/dL CAL (32.0-36.0); RED BLOOD COUNT 3.93 mill/uL (4.20-5.60); RED CELL DISTRI WIDTH 13.3 % (11.5-15.5)
[2020-12-20 05:52] LABS: ANION GAP 8 (6-22 (CALC)); BUN 5 mg/dL (7-17); BUN/CREATININE RATIO 12 (12-20 (CALC)); CARBON DIOXIDE 27 mmol/l (22-30); CHLORIDE 109 mmol/l (95-108); CREATININE 0.4 mg/dL (0.5-1.0); GFR > 60 ML/MIN (>=60 (CALC)); GFR FOR AFR.AMER. > 60 ML/MIN (>=60 (CALC)); POTASSIUM 4.1 mmol/l (3.5-5.1); SODIUM 140 mmol/l (137-146)
[2020-12-20 07:45] VITALS: BP 92/60
[2020-12-20] MEDS ORDERED: PYRIDIUM200 MG PO (09:30)
[2020-12-20] MEDS ORDERED: OMNICEF300 MG PO (09:30)
[2020-12-20 12:00] VITALS: BP 98/59
--- NOTE | 2020-12-20 14:00 | NUR ---
PT ESCORTED VIA HER OWN MACO
== END 2020-12-20 14:00 | disposition home or self-care (01) ==
LOC: ED 14:24 → ED-I 19:03 → ED 19:03 → ED-I 19:26 → ED 19:37 → MS2 19:38
PROVIDERS: Hospitalist; Nurse Practitioner; Physician Assistant Surgical; ADMIT Internal Medicine; ATTEND Internal Medicine
DX: N39.0 Urinary tract infection, site not specified (principal); B96.20 Unspecified Escherichia coli [E. coli] as the cause of diseases classified elsewhere; L03.115 Cellulitis of right lower limb; G82.20 Paraplegia, unspecified; N31.8 Other neuromuscular dysfunction of bladder; L89.619 Pressure ulcer of right heel, unspecified stage; L89.529 Pressure ulcer of left ankle, unspecified stage; G89.4 Chronic pain syndrome; F32.9 Major depressive disorder, single episode, unspecified; F17.210 Nicotine dependence, cigarettes, uncomplicated; Z99.3 Dependence on wheelchair; Z20.822 Contact with and (suspected) exposure to COVID-19
CPT/HCPCS: G0378; J1650